=== PATIENT | male | born 1965 ===

== ENCOUNTER 2018-02-01 10:04 | Outpatient (CLI) | payer OTHER ==
[~2018-02-01] VITALS: Ht 182.9 cm; Wt 140.6 kg
== END 2018-02-01 10:20 | disposition home or self-care (01) ==
LOC: OFIC 805 10:04
DX: H91.22 Sudden idiopathic hearing loss, left ear (principal); R42 Dizziness and giddiness; J32.8 Other chronic sinusitis

== ENCOUNTER 2018-02-08 12:10 | Outpatient (CLI) | payer OTHER | END 2018-02-08 12:25 | disposition home or self-care (01) | LOC: OFIC 805 12:10 | DX: H91.22 Sudden idiopathic hearing loss, left ear (principal); R42 Dizziness and giddiness ==

== ENCOUNTER 2018-03-08 10:03 | Outpatient (CLI) | payer OTHER ==
[~2018-03-08] VITALS: Ht 182.9 cm; Wt 140.6 kg
== END 2018-03-08 10:20 | disposition home or self-care (01) ==
LOC: OFIC 805 10:03
DX: H91.22 Sudden idiopathic hearing loss, left ear (principal); R42 Dizziness and giddiness; R11.0 Nausea

== ENCOUNTER 2018-04-19 13:00 | Outpatient (CLI) | payer OTHER ==
[~2018-04-19] VITALS: Ht 182.9 cm; Wt 140.6 kg
== END 2018-04-19 13:15 | disposition home or self-care (01) ==
LOC: OFIC 805 13:00
DX: H91.22 Sudden idiopathic hearing loss, left ear (principal)